=== PATIENT | male | born 1990 | race Two or more races ===

== ENCOUNTER 2016-10-27 16:30 | Emergency (ER) | payer SELFPAY ==
[~2016-10-27] VITALS: Ht 172.7 cm; Wt 63.5 kg
--- NOTE | ~2016-10-27 | CR133 ---
[facility] A Service of [facility] RADIOLOGY TEXT RESULTS PATIENT: BELIA ESPINOZA LOCATION: [facility] : [birth year] UNIT #: [id number] AGE: [address]: Tere Hale SEX: M ORDER DR: [id number] [place], [place] [address] [id number] E MR#: [id number] #: [id number] NAME: BELIA ESPINOZA : 1990 SEX: M STUDY DATE/TIME: 10/27/2016 17:05 UNIT: CFTX ROOM: STUDY DESCRIPTION: CR Forearm 2 View Rt Attending Physician: Tere Hale P.A.-C. Ordering Physician: Tere Hale P.A.-C. Primary Care Physician: Primary Care Physician No MEDICAL IMAGING REPORT This report is preliminary unless electronic signature is present EXAM Right forearm 10/27/2016 HISTORY 25-year-old male with right distal forearm pain status post fall 3 days ago. COMPARISON None. FINDINGS 2 views of the right forearm demonstrate an ununited, subacute/chronic-appearing transverse oblique fracture of the distal shaft of the ulna. Correlation with any history of more remote injury. No other acute fractures are identified. IMPRESSION Ununited, subacute/chronic-appearing transverse oblique fracture distal shaft of the ulna. Correlation for any history of more remote injury than in the provided clinical history on today's exam. No evidence of an acute appearing right forearm fracture. Dictated by... Garry Reyes M.D. THIS IS AN ELECTRONICALLY VERIFIED REPORT Garry Reyes M.D. at 10/28/2016 2:38 PM RODRIGUEZ/marleny TD: 10/28/2016 04:30 JOB #: [id number] MEDICAL IMAGING REPORT [facility] A Service [facility] RADIOLOGY TEXT RESULTS PATIENT: BELIA ESPINOZA LOCATION: [facility] : [birth year] UNIT #: [id number] AGE: [address]: Tere Hale SEX: M ORDER DR: Page 1 of 1 COPY
== END 2016-10-27 17:50 | disposition home or self-care (01) ==
LOC: CFTX 16:30 → CED 16:30 → CFTX 17:31
DX: S56.811A Strain of other muscles, fascia and tendons at forearm level, right arm, initial encounter (principal); F17.210 Nicotine dependence, cigarettes, uncomplicated; W22.8XXA Striking against or struck by other objects, initial encounter; Y92.9 Unspecified place or not applicable
CPT/HCPCS: 29260; 73090; 99283